=== PATIENT | female | born 1940 | race Caucasian/White ===

== ENCOUNTER 2024-05-23 16:18 | Emergency (ER) | payer MEDICARE, BC ==
[~2024-05-23] VITALS: Ht 160 cm; Wt 88.0 kg
[2024-05-23] MEDS ORDERED: ACETAMINOPHEN ES 500 MG TABLET ONE (16:43)
[2024-05-23] MEDS: ACETAMINOPHEN ES 500 MG TABLET PO ONE (16:46)
[2024-05-23 18:38] VITALS: BP 143/79; TEMP 98; O2SAT 99
== END 2024-05-23 18:38 | disposition home or self-care (01) ==
LOC: ER 16:21
DX: S09.8XXA Other specified injuries of head, initial encounter (principal); I10 Essential (primary) hypertension; W01.0XXA Fall on same level from slipping, tripping and stumbling without subsequent striking against object, initial encounter; Y93.89 Activity, other specified; Y92.89 Other specified places as the place of occurrence of the external cause; Y99.8 Other external cause status
CPT/HCPCS: 70450-TC; 72125-TC